=== PATIENT | female | born 1980 | race Caucasian/White ===

== ENCOUNTER 2020-10-09 12:54 | Emergency (ER) | payer OTHER, SELFPAY ==
[2020-10-09] VITALS (8 sets, daily range): BP systolic 112–156; BP diastolic 78–95; PULSE 68–105; RESP 20; TEMP 37.4–37.6; O2SAT 95–100
--- NOTE | ~2020-10-09 | NM_ITS ---
EXAMINATION: NM lung vent and perfusion DATE: 10/09/2020 17:35 INDICATION: Dyspnea. TECHNIQUE: 5.1 mCi Tc-99m MAA was administered intravenously for perfusion images. Scintigraphic nagie ges of the chest were obtained. COMPARISON: Chest single view 10/09/2020 FINDINGS: Perfusion images show a small defect in left lower lobe. IMPRESSION: 1. Pulmonary embolism absent (low probability). Reviewed, dictated and finalized at location A.
--- NOTE | ~2020-10-09 | XR_ITS ---
EXAMINATION: XR chest 1V portable INDICATION: Shortness of breath, COVID positive TECHNIQUE: Portable AP chest at 1320 hours COMPARISON: None available FINDINGS: There are patchy opacities in the mid and lower lung zones. No pleural effusion or pneumoth orax is identified. The cardiomediastinal silhouette is normal. IMPRESSION: 1. Patchy opacities of the mid and lower lung zones, likely COVID pneumonia given clinical history. Reviewed, dictated and finalized at location A. IMPRESSION: 1. Patchy opacities of the mid and lower lung zones, likely COVID pneumonia giv en clinical history.
--- NOTE | 2020-10-09 13:00 | ECG_ITS ---
Measurements Intervals [place] Rate: 85 P: 44 VT: 137 QRS: 17 QRSD: 87 T: 30 QT: 374 QTc: 446 Interpretive Statements SINUS RHYTHM NONSPECIFIC T-WAVE ABNORMALITY- INFERIOR LEADS BASELINE ARTIFACT- I, III BORDERLINE ECG Electronically Signed On 10-09-2020 13:38:45 CDT by Ponce Crandall D.O.
[2020-10-09 13:40] LABS: Basophils Percent Auto 0.5 % (0.2-1.2); Eosinophils Percent Auto 0.5 % (0-4.4); Hematocrit 46.1 % (37.0-47.0); Hemoglobin 15.4 g/dL (12.0-15.0); Immature Granulocyte Absolute 0.02 K/mm3 (0.00-0.031); Immature Platelet Fraction Pct 7.1 % (0.9-11.2); Lymphocytes Absolute Auto 0.76 K/mm3 (0.9-3.2); Lymphocytes Percent Auto 39.4 % (18.3-44.2); Mean Corpuscular HGB Conc 33.4 g/dl (32-36); Mean Corpuscular Hemoglobin 30.4 pg (26-34); Mean Corpuscular Volume 90.9 fl (80-100); Mean Platelet Volume 10.9 fl (7.4-10.4); Monocytes Absolute Auto 0.2 K/mm3 (0.1-0.6); Monocytes Percent Auto 8.8 % (2.6-8.5); Neutrophils Percent Auto 49.8 % (45.5-73.1); Platelet Count Result 117 k/mm3 (150-375); Red Blood Count 5.07 M/mm3 (4.2-5.4); Red Cell Distribution Width 12.7 % (11.5-14.5)
[2020-10-09 13:45] LABS: White Blood Count 1.9 K/mm3 (4.5-10.0)
[2020-10-09 13:48] LABS: Anion Gap 7 mmol/L (8-16); Blood Urea Nitrogen 8 mg/dL (7-17); Calcium 9.2 mg/dL (8.4-10.2); Carbon Dioxide 24 mmol/L (22-30); Chloride 105 mmol/L (98-107); Estimated CRCL calculation 111 ml/min; Estimated Glomerular Filt Rate > 60; Glucose 91 mg/dL (65-110); Potassium 3.8 mmol/L (3.4-5.0); Sodium 136 mmol/L (137-145)
--- NOTE | 2020-10-09 14:26 | ED.GENADULT ---
HPI - General Adult General Chief complaint: Upper Respiratory Infection Stated complaint: Covid positive Time Seen by Provider: 10/09/20 13:34 Source: RN notes reviewed History of Present Illness HPI narrative: Patient presents to emergency department from home for shortness of breath and weakness. Patient was diagnosed with COVID-19 with a positive test 5 days ago states she has been feeling short of breath as well as feeling generally weak also notes intermittent fever and nausea she denies any chest pain denies any vomiting diarrhea or abdominal pain patient presents with 2 other family was also both positive with COVID-19 Related Data Allergies Allergy/AdvReac Type Severity Reaction Status Date / Time iodine Allergy Itching Verified 10/09/20 14:09 Review of Systems Review of Systems: Gen.: Reports subjective fevers Eyes: Denies eye pain or visual change ENT: Denies congestion Respiratory: See HPI CV: Denies chest pain or palpitations GI: Denies abdominal pain emesis or diarrhea reports nausea Musculoskeletal: Denies back pain or muscle pain Neuro: Denies numbness, tingling, weakness or focal weakness Skin: Denies rash Except as documented, all other systems reviewed and negative [facility] Past Medical History Medical History (Updated 10/09/20 @ 17:56 by Ernst Bone DO) Patient denies significant medical history Social History Social History (Updated 10/09/20 @ 14:27 by Ernst Bone DO) Smoking status: Never smoker Exam Narrative: APPEARANCE: No acute distress, nontoxic, resting in bed EYES: EOMI HEENT: Normocephalic, atraumatic, OMM RESPIRATORY: No respiratory distress Clear to auscultation bilaterally with no rhonchi wheezing or rales. CARDIOVASCULAR: Regular rate and rhythm without murmurs rubs or gallops. ABDOMINAL: Soft, nontender, nondistended, no rebound or guarding MUSCULOSKELETAl: Moves all extremities. No clubbing, cyanosis or edema. NEURO: Awake and alert. Following commands, speech normal, no focal deficits SKIN:: Warm, dry. No rashes lesions or abrasions PSYCHIATRIC: Normal affect/mood, Course Course Emergency Course: Patient's vital signs of remained stable throughout stay in ED will discharge at this time Discussed with patient results of workup and diagnosis. Discussed need for follow-up with primary care, proper use of medication, and reasons to return to the emergency department. Patient understands and agrees to current treatment plan Vital Signs Vital signs: Vital Signs Temperature 99.6 F 10/09/20 12:57 Pulse Rate 85 10/09/20 12:57 Respiratory Rate 20 10/09/20 12:57 Blood Pressure 141/95 H 10/09/20 12:57 Pulse Oximetry 100 10/09/20 12:57 Temperature 99.3 F 10/09/20 17:40 Pulse Rate 74 10/09/20 17:40 Respiratory Rate 20 10/09/20 17:40 Blood Pressure 119/81 10/09/20 17:40 Pulse Oximetry 95 10/09/20 17:40 Medical Decision Making MDM Narrative Medical decision making narrative: Patient tested positive for COVID-19 5 days ago vital signs remained stable in ED. Does note the patient has mildly low platelet count as well as white blood cell count which can be contributed to the patient's viral syndrome while the patient discharged at this time follow-up as an outpatient Vital Signs Vital Signs: Vital Signs Temperature 99.6 F 10/09/20 12:57 Pulse Rate 85 10/09/20 12:57 Respiratory Rate 20 10/09/20 12:57 Blood Pressure 141/95 H 10/09/20 12:57 Pulse Oximetry 100 10/09/20 12:57 Temperature 99.3 F 10/09/20 17:40 Pulse Rate 74 10/09/20 17:40 Respiratory Rate 20 10/09/20 17:40 Blood Pressure 119/81 10/09/20 17:40 Pulse Oximetry 95 10/09/20 17:40 Lab Data Result diagrams: 10/09/20 13:10 10/09/20 13:10 Labs: Lab Results 10/09/20 10/09/20 10/09/20 Range/Units 13:10 13:10 15:02 WBC 1.9 L (4.5-10.0) K/mm3 RBC 5.07 (4.2-5.4) M/mm3 Hgb 15.4 H (12.0-15.0) g/dL
[2020-10-09] MEDS: ALBUTEROL SULFATE (*SP) AEROSOL 1 PUFF 2 PUFF INHALATION (14:40)
[2020-10-09] MEDS: SODIUM CHLORIDE 0.9% IV 1,000 ML 999 ML IV CONT (15:21)
[2020-10-09] MEDS: ONDANSETRON INJ 4 MG/2 ML VIAL IV PUSH (15:21)
[2020-10-09 15:26] LABS: D Dimer 0.77 ug/mL (<0.48)
[2020-10-09 15:27] LABS: Alanine Aminotransferase 87 U/L (4-35); Albumin Level 4.3 g/dL (3.5-5.1); Alkaline Phosphatase 87 U/L (38-126); Aspartate Amino Transferase 85 U/L (14-36); Bilirubin,Total 1.3 mg/dL (0.2-1.3)
== END 2020-10-09 18:10 | disposition home or self-care (01) ==
PROVIDERS: Emergency Provider Emergency Medicine
DX: U07.1 COVID-19 (principal); R91.8 Other nonspecific abnormal finding of lung field; R94.31 Abnormal electrocardiogram [ECG] [EKG]
CPT/HCPCS: 36415; 71045; 78582; 80048; 80076; 85025; 85055; 85380; 93005; 96361; 96365; 96375; 99284; A9270; A9540; A9558; J0131; J2405; J7030

== ENCOUNTER 2021-04-06 15:28 | Outpatient (CLI) | payer OTHER, SELFPAY ==
--- NOTE | ~2021-04-06 | MR_ITS ---
EXAMINATION: MR lumbar spine wo/w con EXAM DATE: 04/06/2021 16:15 INDICATION: Cronic Jer Low Back Pain With Sciatica. Bilateral leg pain and numbness. TECHNIQUE: Multi-sequential, multiplanar MR images of the lumbar spine were obtained without contrast . Sagittal T1, T2, T2 fat saturation images. Axial T2 weighted images. Axial T1 weighted sequence. Patient was then injected with 13 mL Multihance intravenous contrast and reimaged. Postcontrast axi al and sagittal T1-weighted fat saturation sequences were obtained. There is no prior study for jeff gordon. FINDINGS: There is 2 mm retrolisthesis L3 on L4. Mild loss of this disc height. There is a rudimentar y L5-S1 disc. The conus medullaris terminates at the L1 level and has normal signal intensity and mo rphology. There are no suspicious marrow signal abnormalities. Paraspinal soft tissue is unremarkable . There are no areas of abnormal enhancement on the post contrast images. Level by level evaluation: T12-L1: Disc does not extend beyond the endplate margin. Facet arthropathy: Mild. Neural foraminal stenosis: No stenosis. Central canal stenosis: No stenosis. L1-L2: Disc does not extend beyond the endplate margin. Facet arthropathy: Mild. Neural foraminal stenosis: No stenosis. Central canal stenosis: No stenosis. L2-L3: There is a minimal diffuse disc bulge. Facet arthropathy: Mild to moderate. Neural foraminal stenosis: No stenosis. Central canal stenosis: No stenosis. L3-L4: There is a mild diffuse disc bulge. Facet arthropathy: Moderate. Neural foraminal stenosis: Minimal bilateral. Central canal stenosis: Mild. L4-L5: There is a mild diffuse disc bulge. Facet arthropathy: Moderate. Neural foraminal stenosis: Mild bilateral. Central canal stenosis: Mild. L5-S1: There is a congenitally narrowed disc space. Facet arthropathy: Mild. Neural foraminal stenosis: Mild to moderate left. Central canal stenosis: No stenosis. IMPRESSION: 1. L5-S1 rudimentary disc, mild to moderate left neural foraminal stenosis. 2. Moderate mid lumbar facet arthropathy. Reviewed, dictated and finalized at location G. R FINISHER
[2021-04-06 15:49] LABS: Estimated Glomerular Filt Rate > 60
== END 2021-04-06 15:29 ==
LOC: MICIMG 15:29
DX: M54.42 Lumbago with sciatica, left side (principal); M54.41 Lumbago with sciatica, right side; G89.29 Other chronic pain; M48.07 Spinal stenosis, lumbosacral region; M12.88 Other specific arthropathies, not elsewhere classified, other specified site
CPT/HCPCS: 72158; A9577